=== PATIENT | female | born 1980 | race Caucasian/White ===

== ENCOUNTER 2017-10-20 09:53 | Emergency (ER) | payer SELFPAY ==
[~2017-10-20] VITALS: Ht 170.2 cm; Wt 72.0 kg
[~2017-10-20 09:53] MED LIST: CLIN150C14 PO; IBUP1TAB7 PO
[2017-10-20 10:11] VITALS: BP 140/83; PULSE 80; RESP 17; TEMP 98.8; O2SAT 97
--- NOTE | 2017-10-20 12:21 | PD ---
HPI Chief Complaint: Oral / Dental Pain or Problem Time Seen by Provider: 12:12 Travel History International Travel<30 days: No Contact w/Intl Traveler<30days: No Traveled to known affect area: No History of Present Illness HPI 36-year-old female presents to the ED for evaluation approximately 36 hour history of 7/10 left lower dental pain. Described as sharp, no radiation. Onset gradual. The patient endorses a broken tooth in the area 2 years. She states that she's had one abscess in the past. She denies fever, chills, nausea , vomiting, difficulty swallowing. No treatment attempt at home. She does not have a dentist. PFSH Past Medical History Blood Disorders: No Bipolar Disorder: Yes Depression: Yes Cancer: No Cardiovascular Problems: No Diabetes: No Diminished Hearing: No Endocrine: No Gastrointestinal Disorders: No Genitourinary: No Immune Disorder: No Implanted Vascular Access Dvce: No Musculoskeletal: No Neurologic: No Psychiatric: Yes Reproductive: No Respiratory: No Immunizations Current: Yes ?: Not LMP: 10/2017 : 3 Para: 3 Ovarian Cysts: Yes (RIGHT) Past Surgical History AICD: No Arteriovenous Shunt: No Insulin Pump: No Joint Replacement: No Pacemaker: No Tonsillectomy: Yes Other Surgery: No Social History Alcohol Use: Yes (COUPLE TIMES A WEEK) Tobacco Use: Yes (1/2 PPD) Substance Use: Yes (cocaine, marijuana) Allergies-Medications (Allergen,Severity, Reaction): Coded Allergies: No Known Allergies (Verified Adverse Reaction, Unknown, 10/20/17) Reported Meds & Prescriptions Reported Meds & Active Scripts Active Review of Systems Except as stated in HPI: all other systems reviewed are Neg Physical Exam Narrative GENERAL: Well-nourished, well-developed white female in no acute distress. SKIN: Focused skin assessment warm/dry. HEAD: Normocephalic. EYES: No scleral icterus. No injection or drainage. NECK: Supple, trachea midline. No JVD or lymphadenopathy. DENTAL: No loose or chipped teeth. No malocclusion. There is a large dental caries in tooth #19. Surrounding mucosa is erythematous, edematous, tender. No drainable abscess noted. Airway patent. Uvula midline. No facial swelling noted. CARDIOVASCULAR: Regular rate and rhythm without murmurs, gallops, or rubs. RESPIRATORY: Breath sounds equal bilaterally. No accessory muscle use. GASTROINTESTINAL: Abdomen soft, non-tender, nondistended. MUSCULOSKELETAL: No cyanosis, or edema. BACK: Nontender without obvious deformity. No CVA tenderness. Data Data Last Documented VS Vital Signs Date Time Temp Pulse Resp B/P (MAP) Pulse Ox O2 Delivery O2 Flow Rate FiO2 10/20/17 10:11 98.8 80 17 140/83 (102) 97 Orders Orders Ibuprofen (Motrin) (10/20/17 12:30) Penicillin V Potassium (Veetids) (10/20/17 12:30) Ed Discharge Order (10/20/17 12:22) [facility] Medical Decision Making Medical Screen Exam Complete: Yes Emergency Medical Condition: Yes Differential Diagnosis Dental caries versus dental abscess versus dental pain Narrative Course 36-year-old female presents to the ED for evaluation of 36 hours as 7/10 left lower dental pain. Patient endorses a broken tooth in the area. Afebrile on presentation. On exam there is a large dental caries in tooth #19. The surrounding mucosa is erythematous, edematous and tender. No drainable abscess noted. No facial swelling noted. Patient's prescribed 500 mg Penicillin VK 4 times a day 7 days and 800 mg ibuprofen 3 times a day when necessary for pain. First doses administered in the ED. She is provided a list of dental resources. She is instructed to return to the ED for worsening symptoms. She is stable and discharged home. Diagnosis Primary Impression: Dental caries Additional Impression: Pain, dental Referrals: Dentist Additional Instructions: Begin antibiotics today and take them until every pill is gone. 800 mg ibuprofen 3 times a day to reduce pain. Warm salt water gargles may also help her symptoms. Follow-up with a dentist. Return to the ED for worsening symptoms or any urgent or emergent medical condition. Med/Other Pt SpecificInfo: Prescription(s) given Disposition: DISCHARGE HOME Condition: Stable Manasa Benitez Oct 20, 2017 12:21
[2017-10-20] MEDS ORDERED: PENICILLIN V POTASSIUM 500 MG TAB PO ONE (12:30)
[2017-10-20] MEDS ORDERED: IBUPROFEN 800 MG TAB PO ONE (12:30)
[2017-10-20] MEDS ORDERED: IBUP1TAB7 PO (12:52)
[2017-10-20] MEDS ORDERED: PENI500T PO (12:52)
== END 2017-10-20 13:21 | disposition home or self-care (01) ==
LOC: NED 09:53 → NEPK 13:21
DX: K02.9 Dental caries, unspecified (principal); K08.89 Other specified disorders of teeth and supporting structures; F31.9 Bipolar disorder, unspecified; F17.200 Nicotine dependence, unspecified, uncomplicated
CPT/HCPCS: 99283

== ENCOUNTER 2017-11-04 09:50 | Emergency (ER) | payer SELFPAY ==
[~2017-11-04] VITALS: Ht 170.2 cm; Wt 76.0 kg
[~2017-11-04 09:50] MED LIST changes: -CLIN150C14 PO; +PENI500T PO
[2017-11-04 10:02] VITALS: BP 145/97; PULSE 79; RESP 17; TEMP 98.9; O2SAT 99
[2017-11-04] MEDS ORDERED: SODIUM CHLOR 0.9% 1000 ML INJ 1,000 ML IV SCH (10:47)
--- NOTE | 2017-11-04 10:53 | PD ---
HPI Chief Complaint: Cold / Flu Symptoms Time Seen by Provider: 10:42 Travel History International Travel<30 days: No Contact w/Intl Traveler<30days: No Traveled to known affect area: No History of Present Illness HPI 36-year-old female presents the emergency department with sudden onset flulike symptoms including head congestion, headache, sore throat, postnasal drip, cough, nausea, vomiting, and diarrhea. Patient denies urinary symptoms. She states no vaginal symptoms. Patient denies flank pain. Patient has felt feverish. Patient states it started suddenly yesterday. She feels somewhat better today. She is a smoker, but states she feels short of breath and wheezing. She denies specific abdominal pain. She has no known drug allergies. PFSH Past Medical History Blood Disorders: No Bipolar Disorder: Yes Depression: Yes Cancer: No Cardiovascular Problems: No Diabetes: No Diminished Hearing: No Endocrine: No Gastrointestinal Disorders: No Genitourinary: No Immune Disorder: No Implanted Vascular Access Dvce: No Musculoskeletal: No Neurologic: No Psychiatric: Yes Reproductive: No Respiratory: No Immunizations Current: Yes ?: Not LMP: OCTOBER 31 : 3 Para: 3 Ovarian Cysts: Yes (RIGHT) Past Surgical History AICD: No Arteriovenous Shunt: No Insulin Pump: No Joint Replacement: No Pacemaker: No Tonsillectomy: Yes Other Surgery: No Social History Alcohol Use: Yes (COUPLE TIMES A WEEK) Tobacco Use: Yes (1/2 PPD) Substance Use: Yes (cocaine, marijuana) Allergies-Medications (Allergen,Severity, Reaction): Coded Allergies: No Known Allergies (Verified Adverse Reaction, Unknown, 11/04/17) Reported Meds & Prescriptions Reported Meds & Active Scripts Active Zofran (Ondansetron HCl) 4 Mg Tab 4 Mg PO Q6HR PRN Review of Systems Except as stated in HPI: all other systems reviewed are Neg General / Constitutional: Positive: Fever, Chills Eyes: No: Visual changes HENT: Positive: Headaches, Sore Throat, Rhinitis, Rhinorrhea, Congestion, No: Vertigo, Lightheadedness, Nosebleed, Neck Stiffness, Neck Pain, Dental Difficulties, Earache Cardiovascular: No: Chest Pain or Discomfort Respiratory: Positive: Cough, Shortness of Breath, Wheezing Gastrointestinal: Positive: Nausea, Vomiting, Diarrhea, Abdominal Pain (Mild generalized) Genitourinary: No: Urgency, Frequency, Dysuria, Decreased Urinary Output, Pelvic Pain, Flank Pain, Discharge, Vaginal Bleeding Musculoskeletal: Positive: Myalgias, No: Pain Skin: No Rash Neurologic: No: Weakness Psychiatric: No: Depression Endocrine: No: Polydipsia Hematologic/Lymphatic: No: Easy Bruising Physical Exam Narrative GENERAL: Patient appears ill but not septic SKIN: Warm and dry. Decreased pallor. Normal turgor. No diaphoresis. HEAD: Atraumatic. Normocephalic. EYES: Pupils equal and round. No scleral icterus. No injection or drainage. ENT: No nasal bleeding or discharge. Mucous membranes pink and somewhat dry. Pharynx appears generally erythematous without significant lymphadenopathy or exudate. Postnasal drip is noted. Sinuses are tender with palpation and percussion bilaterally. TMs are dull bilaterally without injection. NECK: Trachea midline. Supple and nontender. CARDIOVASCULAR: Regular rate and rhythm. RESPIRATORY: No accessory muscle use. Clear to auscultation. Breath sounds equal bilaterally. GASTROINTESTINAL: Abdomen soft, mild diffuse nonspecific tenderness, nondistended. No CVA tenderness hepatic and splenic margins not palpable. MUSCULOSKELETAL: Extremities without clubbing, cyanosis, or edema. No obvious deformities. NEUROLOGICAL: Awake and alert. No obvious cranial nerve deficits. Motor grossly within normal limits. Five out of 5 muscle strength in the arms and legs. Normal speech. PSYCHIATRIC: Appropriate mood and affect; insight and judgment normal. Data Data Last Documented VS Vital Signs Date Time Temp Pulse Resp B/P (MAP) Pulse Ox O2 Delivery O2 Flow Rate FiO2 11/04/17 10:02 98.9 79 17 145/97 (113) 99 Orders Orders Influenzae A/B Antigen (11/04/17 10:05) Complete Blood Count With Diff (11/04/17 10:47) Comprehensive Metabolic Panel (11/04/17 10:47) Lipase (11/04/17 10:47) Lactic Acid (11/04/17 10:47) Urinalysis - C+S If Indicated (11/04/17 10:47) Iv Access Insert/Monitor (11/04/17 10:47) Ecg Monitoring (11/04/17 10:47) Oximetry (11/04/17 10:47) Ondansetron Inj (Zofran Inj) (11/04/17 11:00) Sodium Chlor 0.9% 1000 Ml Inj (Ns 1000 M (11/04/17 10:47) Sodium Chloride 0.9% Flush (Ns Flush) (11/04/17 11:00) Chest, Single Ap (11/04/17 10:47) Ketorolac Inj (Toradol Inj) (11/04/17 11:00) Ed Urine Pregnancytest Poc (11/04/17 10:47) Labs Laboratory Tests Test 11/04/17 11:18 11/04/17 11:20 Urine Color LIGHT-YELLOW Urine Turbidity CLEAR Urine pH 5.5 Urine Specific [place] 1.003 Urine Protein NEG mg/dL Urine Glucose (UA) NEG mg/dL Urine Ketones NEG mg/dL Urine Occult Blood NEG Urine Nitrite NEG Urine Bilirubin NEG Urine Urobilinogen LESS THAN 2.0 MG/DL Urine Leukocyte Esterase NEG Urine WBC LESS THAN 1 /hpf Urine Squamous Epithelial Cells 1 /hpf Microscopic Urinalysis Comment CULT NOT INDICATED White Blood Count 7.8 TH/MM3 Red Blood Count 4.29 MIL/MM3 Hemoglobin 15.1 GM/DL Hematocrit 44.6 % Mean Corpuscular Volume 104.1 FL Mean Corpuscular Hemoglobin 35.3 PG Mean Corpuscular Hemoglobin Concent 33.9 % Red Cell Distribution Width 14.7 % Platelet Count 253 TH/MM3 Mean Platelet Volume 6.9 FL Neutrophils (%) (Auto) 73.9 % Lymphocytes (%) (Auto) 18.0 % Monocytes (%) (Auto) 7.4 % Eosinophils (%) (Auto) 0.1 % Basophils (%) (Auto) 0.6 % Neutrophils # (Auto) 5.8 TH/MM3 Lymphocytes # (Auto) 1.4 TH/MM3 Monocytes # (Auto) 0.6 TH/MM3 Eosinophils # (Auto) 0.0 TH/MM3 Basophils # (Auto) 0.0 TH/MM3 CBC Comment DIFF FINAL Differential Comment Blood Urea Nitrogen 7 MG/DL Creatinine 0.82 MG/DL Random Glucose 90 MG/DL Total Protein 7.5 GM/DL Albumin 3.4 GM/DL Calcium Level 8.8 MG/DL Alkaline Phosphatase 73 U/L Aspartate Amino Transf (AST/SGOT) 26 U/L Alanine Aminotransferase (ALT/SGPT) 28 U/L Total Bilirubin 0.5 MG/DL Sodium Level 135 MEQ/L Potassium Level 3.9 MEQ/L Chloride Level 106 MEQ/L Carbon Dioxide Level 18.2 MEQ/L Anion Gap 11 MEQ/L Estimat Glomerular Filtration Rate 78 ML/MIN Lactic Acid Level 2.9 mmol/L Lipase 165 U/L [facility] Medical Decision Making Medical Screen Exam Complete: Yes Emergency Medical Condition: Yes Differential Diagnosis Viral illness. Influenza. Nausea vomiting. Diarrhea. Narrative Course Patient is medically stable at time of exam. Rapid influenza is sent in triage Labs ordered including CBC, CMP, lactic acid, lipase, urinalysis. Urine . Chest x-ray is ordered. IV access is obtained and the patient was given 4 mg Zofran IV as well as 30 mg Toradol IV. Patient is given 1000 mL of normal saline bolus 2. CBC is unremarkable without significant leukocytosis. Chemistries show sodium 135, Pneumovax is 18.2 GFR 78, lactic acid is elevated at 2.9. The rest is within normal limits. Urinalysis is unremarkable. Urine is negative. Rapid influenza is negative. Patient feels improved after meds and hydration. Patient is felt stable for discharge home. Patient is given a prescription for Zofran 4 mg every 6 hours as needed nausea vomiting #12. Patient is to rest, push fluids, take Tylenol and ibuprofen as needed. Work note is given. Patient can return if symptoms persist or worsen. Diagnosis Primary Impression: Gastroenteritis Referrals: Primary Care Physician Patient Instructions: Acute Nausea and Vomiting (ED), General Instructions Departure Forms: Work Release Enter return to work date: Nov 06, 2017 Additional Instructions: Patient is felt stable for discharge home. Patient is given a prescription for Zofran 4 mg every 6 hours as needed nausea vomiting #12. Patient is to rest, push fluids, take Tylenol and ibuprofen as needed. Work note is given. Patient can return if symptoms persist or worsen. Med/Other Pt SpecificInfo: Prescription(s) given Scripts Ondansetron (Zofran) 4 Mg Tab 4 MG PO Q6HR Y for NAUSEA OR VOMITING, #12 TAB 0 Refills Prov: Fabián Nelson MD 11/04/17 Disposition: 01 DISCHARGE HOME Condition: Stable Darien Byrd Nov 04, 2017 10:53
[2017-11-04] MEDS ORDERED: KETOROLAC TROMETHAMINE 30 MG/ML (IVP) VIAL IVP ONE (11:00)
[2017-11-04] MEDS ORDERED: SODIUM CHLORIDE 0.9% FLUSH 10 ML FLUSH IV FLUSH PRN (11:00)
[2017-11-04] MEDS ORDERED: ONDANSETRON HCL 4 MG/2 ML VIAL IVP ONE (11:00)
--- NOTE | 2017-11-04 11:05 | RADRPT ---
EXAM DATE/TIME: 11/04/2017 10:50 [place] COMPARISON: PELVIS AP ONLY, June 23, 2016, 23:09. INDICATIONS : Cough. Flu-like symptoms. MEDICAL HISTORY : Bipolar disorder. Substance abuse. SURGICAL HISTORY : Tonsillectomy. ENCOUNTER: Initial ACUITY: 3 days PAIN SCORE: 3/10 LOCATION: Bilateral chest FINDINGS: A single view of the chest demonstrates the lungs to be symmetrically aerated without evidence of mas s, infiltrate or effusion. The cardiomediastinal contours are unremarkable. Osseous structures are intact. CONCLUSION: 1. No acute cardiopulmonary findings. Fabián Rosenthal MD on November 04, 2017 at 11:01 Board Certified Radiologist. This report was verified electronically.
[2017-11-04 11:57] LABS: AUTOMATED NEUTROPHIL # 5.8 TH/MM3 (1.8-7.7); BASOPHIL % 0.6 % (0.0-2.0); EOSINOPHIL % 0.1 % (0.0-4.0); HEMATOCRIT 44.6 % (35.0-46.0); HEMOGLOBIN 15.1 GM/DL (11.6-15.3); LYMPHOCYTE # 1.4 TH/MM3 (1.0-4.8); MEAN CELL VOLUME 104.1 FL (80.0-100.0); MEAN CORPUSCULAR HEMOGLOBIN 35.3 PG (27.0-34.0); MEAN CORPUSCULAR HGB CONC 33.9 % (32.0-36.0); MEAN PLATELET VOLUME 6.9 FL (7.0-11.0); MONO % 7.4 % (0.0-8.0); MONOCYTE # 0.6 TH/MM3 (0-0.9); NEUT % 73.9 % (16.0-70.0); PLATELET COUNT 253 TH/MM3 (150-450); RED BLOOD COUNT 4.29 MIL/MM3 (4.00-5.30); RED CELL DISTRIBUTION WIDTH 14.7 % (11.6-17.2); WHITE BLOOD COUNT 7.8 TH/MM3 (4.0-11.0)
[2017-11-04 11:58] LABS: BILIRUBIN, URINE NEG (NEG); BLOOD, URINE NEG (NEG); GLUCOSE,URINE NEG (NEG); KETONE, URINE NEG (NEG); NITRITE,URINE NEG (NEG); PH, URINE 5.5 (5.0-8.5); SQUAMOUS EPITHELIAL CELL URINE 1 /hpf (0-5); URINE COLOR LIGHT-YELLOW (YELLW/STRAW); URINE LEUKOCYTE ESTERASE NEG (NEG)
[2017-11-04 12:19] LABS: ALBUMIN 3.4 GM/DL (3.4-5.0); AST (GOT) 26 U/L (15-37); BICARBONATE 18.2 MEQ/L (21.0-32.0); BLOOD UREA NITROGEN 7 MG/DL (7-18); CALCIUM 8.8 MG/DL (8.5-10.1); CHLORIDE 106 MEQ/L (98-107); CREATININE 0.82 MG/DL (0.50-1.00); GLOMERULAR FILTRATION RATE 78 ML/MIN (>89); GLUCOSE,RANDOM 90 MG/DL (74-106); SODIUM (NA) 135 MEQ/L (136-145)
[2017-11-04 12:20] LABS: ALT (GPT) 28 U/L (10-53)
[2017-11-04 12:22] LABS: ALKALINE PHOSPHATASE 73 U/L (45-117); TOTAL BILIRUBIN ADULT 0.5 MG/DL (0.2-1.0); TOTAL PROTEIN 7.5 GM/DL (6.4-8.2)
[2017-11-04] MEDS ORDERED: ZOFR4TAB PO (12:55)
== END 2017-11-04 13:32 | disposition home or self-care (01) ==
LOC: NEPD 09:50
DX: K52.9 Noninfective gastroenteritis and colitis, unspecified (principal); F31.9 Bipolar disorder, unspecified; F17.210 Nicotine dependence, cigarettes, uncomplicated
CPT/HCPCS: 71045; 80053; 81001; 83605; 83690; 84703; 85025; 87804; 96361; 96374; 96375; 99284; J1885; J2405; J7030